=== PATIENT | male | born 1970 | race African-American/Black ===

== ENCOUNTER → 2019-11-19 | Outpatient (CLI) | payer OTHER ==
--- NOTE | 2019-11-19 02:16 | RAD ---
INDICATION: Reason: LT UPPER ARM BRUSIED PAINFUL AFTER DIALYSIS ON THURSDAY / . Instructions: / History: COMPARISON: None. FINDINGS: Spectral Doppler, color grayscale ultrasound images obtained of left arm deep venous system. Vascular flow is seen within the left internal jugular, subclavian, axillary, basilic, brachial vein. Large hypoechoic region is seen within the soft tissues. Vascular flow seen within the radial and ulnar vein. Vascular flow seen within fistula. IMPRESSION: * Vascular flow is seen within the fistula. * Hypoechoic region within the soft tissues. Possible causes would include soft tissue hematoma although other causes such as infectious etiology would also be in the differential. Electronically signed by: Yves Holden MD (11/19/2019 2:13 AM) [id number]
== END | disposition home or self-care (01) ==
LOC: US 00:59
DX: S40.022A Contusion of left upper arm, initial encounter (principal); I82.402 Acute embolism and thrombosis of unspecified deep veins of left lower extremity; L98.8 Other specified disorders of the skin and subcutaneous tissue; X58.XXXA Exposure to other specified factors, initial encounter; Y93.89 Activity, other specified; Y92.89 Other specified places as the place of occurrence of the external cause; Y99.8 Other external cause status
CPT/HCPCS: 93971